=== PATIENT | male | born 1995 | race African-American/Black ===

== ENCOUNTER 2016-07-16 11:23 | Inpatient (IN) | payer OTHER, BC ==
--- NOTE | ~2016-07-16 | PN ---
Unit #: [id number] #: [id number] Patient: ADRIA ISRAEL [id number] [facility] [address] [place] [address] [id number] I MR#: [id number] NAME: ADRIA ISRAEL ROOM: [facility] Age: 21 Sex: M Admission Date: 07/16/2016 : 1995 Attending Physician: Brian Khan M.D. Admitting Physician: Brian Khan M.D. Primary Care Physician: Primary Care Physician Lashaun SCHAFFER PROGRESS NOTES DATE OF SERVICE: 07/18/2016 DISCUSSION Adria Israel is a 21-year-old male, seen on 07/18/2016. The patient interviewed, chart reviewed, and obtained information from nursing staff. The patient continues to be guarded, paranoid, attending to internal stimuli. The patient's behavior was disorganized. The patient was impulsive, but compliant with medication, needing seclusion and holding due to aggression and poor boundaries. The patient was very intrusive, needing redirection, attending to internal stimuli. Complete review of systems is unremarkable. MENTAL STATUS EXAMINATION General appearance, the patient dressed casually. Attention span and concentration, poor. Oriented in place. Mood and affect; labile, flat. Speech, monotone. Thought process, circumstantial. Thought content; guarded, paranoid, delusional, attending to internal stimuli. Recent and remote memory, poor. Insight and judgment, poor. DIAGNOSES 1. Psychosis, not otherwise specified. 2. Schizophrenia, chronic paranoid type. ASSESSMENT AND PLAN Advised to discontinue Zyprexa and start the patient on Abilify 10 mg b.i.d. for psychotic symptom with a plan to stabilize the patient on the Abilify and consider switching the patient from Abilify tablet to injection, Abilify Maintena, intramuscular long-acting medication as the patient has a history of multiple admissions and noncompliance. Continue with the inpatient programing. Dictated by... Kishore Parish/ludwig TD: 07/19/2016 12:13 JOB #: [id number] Unit #: [id number] #: [id number] Patient: ADRIA ISRAEL PROGRESS NOTES X Brian hKan MD PROGRESS NOTE
--- NOTE | ~2016-07-16 | HP ---
Unit #: [id number] #: [id number] Patient: ADRIA ISRAEL [id number] [place] [address] [id number] I MR#: [id number] NAME: ADRIA ISRAEL ROOM: [facility] Age: 21 Sex: M Admission Date: 07/16/2016 : 1995 Attending Physician: Brian Khan M.D. Admitting Physician: Brian Khan M.D. Primary Care Physician: Primary Care Physician No HISTORY AND PHYSICAL HISTORY OF PRESENT ILLNESS Adria is a 21 year old admitted to [address] [place] [address] with psychotic behavior. He is a poor historian so his history is taken from his chart. PAST MEDICAL HISTORY Nothing significant. PAST SURGICAL HISTORY Nothing reported. ALLERGIES No known drug allergies. SOCIAL HISTORY No history of cigarettes, alcohol or illicit drug use. FAMILY HISTORY Medically noncontributory. REVIEW OF SYSTEMS He does not answer any questions appropriately. There are no reports of nausea, vomiting or diarrhea. He has had no cough or increased temperature. CURRENT MEDICATIONS 1. Claritin 10 mg daily 2. Cogentin 1 mg q.h.s. 3. Haldol 5 mg q.h.s. 4. Depakote 500 mg b.i.d. 5. Zyprexa 10 mg b.i.d. 6. Milk of Magnesia p.r.n. 7. Maalox p.r.n. 8. Tylenol p.r.n. 9. Desyrel 100 mg q.h.s. p.r.n. 10. Nicotine patch 14 mg daily PHYSICAL EXAMINATION GENERAL: Alert, well-nourished, in no apparent distress. VITAL SIGNS: Blood pressure 132/86, heart rate 80, respirations 16, temperature 98.6. WEIGHT: 142 pounds. HEIGHT: 6'0". Unit #: [id number] #: [id number] Patient: ADRIA ISRAEL SKIN: Warm and dry without rash or lesion. HEENT: Normocephalic. TMs not viewed. Oral and nasal passages clear. Conjunctivae clear. Pupils equal, round and reactive to light and accommodation. Extraocular movements intact. NECK: Supple without lymphadenopathy or thyromegaly. HEART: Regular rate and rhythm without murmur. LUNGS: Clear. ABDOMEN: Soft, nontender. : Not done. EXTREMITIES: No evidence of cyanosis, clubbing or edema. Moves all extremities without focal deficit. NEUROLOGICAL: Unable to complete extended exam. He does move all extremities without focal deficit. 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 IMPRESSION Psychiatric admission RECOMMENDATIONS PSYCHIATRIC: Per psychiatrist. MEDICAL: I see no contraindications to participating in facility's activities. MEDICAL PROGNOSIS Good. MEDICAL CONDITION Stable. Dictated by... Amada Beauchamp P.A.-C. for Kishore Stubbs/artemio TD: 07/17/2016 01:04 JOB #: [id number] HISTORY AND PHYSICAL X Amada Beauchamp X HISTORY AND PHYSICAL
--- NOTE | ~2016-07-16 | PA ---
Unit #: [id number] #: [id number] Patient: ADRIA ISRAEL [id number] [place] [address] [id number] I MR#: [id number] NAME: ADRIA ISRAEL ROOM: 15 Age: 21 Sex: M Admission Date: 07/16/2016 : 1995 Date of Assessment: 07/17/2016 Attending Physician: Brian Khan M.D. Admitting Physician: Brian Khan M.D. Primary Care Physician: Primary Care Physician No PSYCHIATRIC ASSESSMENT INFORMANTS The patient reliability, poor; chart reliability, good. CHIEF COMPLAINT "I don't know." HISTORY OF PRESENT ILLNESS Mr. Adria Israel is a 21-year-old male, well known to us from his previous admission on 06/12/2016. The patient has a history of previous admission at [facility] and [facility] for psychosis. The patient presented with psychotic symptom. Father stated that the patient was discharged from this facility on 06/19/2016 and he went 2 times to [facility] session. The patient returned to work, but stopped going after a few days. The patient also stopped taking his discharge medication after a few days of discharge. Father reported that in the past one and half weeks exhibiting bizarre behavior, talking to his sister and stuffed animal toys. The patient not sleeping, poor appetite, neglecting his ADL. The patient also making suicidal and homicidal statement. Needing inpatient admission and placed on 72-hour hold at this time. PAST PSYCHIATRIC HISTORY Remarkable for history of previous admission 05/01/2012 inpatient at [facility], 06/12/2016 inpatient at [facility], 06/30/2016, [facility] for psychosis. FAMILY HISTORY AND SOCIAL HISTORY The patient lives alone, works at [employer]. Denied any history of any abuse, but reported fixated on mother not being nice to him. No known history of any abuse. MEDICAL HISTORY Unremarkable for any chronic medical illness. Musculoskeletal; muscle strength and tone, no atrophy or abnormal movement. Gait normal. MEDICATION HISTORY The patient is currently on Claritin 10 mg daily, Cogentin 1 mg at bedtime, haloperidol 5 mg at bedtime, Depakote 500 mg b.i.d., Zyprexa 10 mg b.i.d. ALLERGIES No known drug allergies. SUBSTANCE ABUSE HISTORY Unit #: [id number] #: [id number] Patient: ADRIA ISRAEL History of marijuana abuse, tobacco use at age 19, but the patient denied any use of drugs or alcohol recently, but according to the intake reports occasional use. REVIEW OF SYSTEMS HEENT: Eyes, clear. Ears, nose, mouth, and throat; clear. CARDIOVASCULAR: Unremarkable. RESPIRATORY: Unremarkable. GI: Unremarkable. : Unremarkable. SKIN: Unremarkable. LYMPH NODE: Unremarkable. NEUROLOGIC: Unremarkable. ENDOCRINE: Unremarkable. HEMATOLOGIC: Unremarkable. ALLERGIC/IMMUNOLOGIC: Unremarkable. MUSCULOSKELETAL: Muscle strength and tone, no atrophy or abnormal movement. Gait normal. MENTAL STATUS EXAMINATION CONSTITUTIONAL: Measurement of vital signs; temperature 98.3, pulse 74, respirations 12, blood pressure 127/74. Height 6 feet and weight 182 pounds. GENERAL APPEARANCE: The patient thin built, casually dressed. No facial deformity noted. MUSCULOSKELETAL: Please see above. PSYCHIATRIC EXAMINATION Description of speech; slow, long pauses, guarded. Description of thought process, circumstantial. Description of association; guarded, paranoid, attending to internal stimuli, preoccupied, mood lability, problem with anger, psychotic symptom, but denied any thoughts of harming self or others. Recent and remote memory, poor. Insight and judgment, poor. The patient was agitated, aggressive, needing injection Haldol 10, Cogentin 1, Ativan 1 mg IM. Complete mental status examination; orientation, unable to assess. Recent and remote memory, poor. Attention span and concentration, poor. Language, able to name object. Fund of knowledge, poor. Insight and judgment, impaired. ASSETS AND LIABILITIES Assets; the patient articulate, able to take care of his ADL. Liability; history of psychosis, substance abuse. ADMITTING DIAGNOSES Psychiatric: 1. Schizophrenia, chronic paranoid type, F20.0. 2. Rule out bipolar mood disorder. Secondary diagnosis: Deferred. Medical diagnosis: None. Stressors: Psychosocial stressors. PSYCHIATRIC PLAN AND TREATMENT GOAL 1. Advised to admit the patient on the inpatient unit. Provide safe, supportive, and structured environment. Unit #: [id number] #: [id number] Patient: ADRIA ISRAEL 2. Ordered labs; CBC, CMP, UA, and UDS. 3. Precaution for aggression, psychosis, self-harm. 4. Advised to continue with current medication with a plan to consider medication that can be used as an injectable long-acting such as Haldol long-acting once the patient is compliant with oral medication or Abilify. DISCHARGE PLAN Plan to stabilize the patient and consider followup in outpatient program. ESTIMATED LENGTH OF STAY 2 weeks. Dictated by... Kishore Parish/ludwig TD: 07/18/2016 05:12 JOB #: [id number] PSYCHIATRIC ASSESSMENT X Brian Khan MD PSYCHIATRIC ASSESSMENT
--- NOTE | ~2016-07-16 | PN ---
Unit #: [id number] #: [id number] Patient: ADRIA ISRAEL [id number] [facility] [address] [place] [address] [id number] I MR#: [id number] NAME: ADRIA ISRAEL ROOM: [facility] Age: 21 Sex: M Admission Date: 07/16/2016 : 1995 Attending Physician: Brian Khan M.D. Admitting Physician: Brian Khan M.D. Primary Care Physician: Primary Care Physician Lashaun WOLF NOTES DATE OF SERVICE: 07/20/2016 DISCUSSION Adria Israel is a 21-year-old male, seen on 07/20/2016. The patient interviewed, chart reviewed, and obtained information from nursing staff. The patient continues to be guarded, paranoid, mood lability, poor hygiene and grooming. The patient reports that he was able to sleep, but still withdrawn, isolative, guarded, paranoid, and delusional. REVIEW OF SYSTEMS Complete review of systems unremarkable. MENTAL STATUS EXAMINATION General appearance, the patient dressed casually. Attention span and concentration, poor. Orientation in place and person. Mood and affect, labile. Speech; rapid, repetitive, question. Thought process, circumstantial. Association; guarded, paranoid, mood lability, aggression. Recent and remote memory, poor. Insight and judgment, poor. DIAGNOSES Psychosis, not otherwise specified; mood disorder, not otherwise specified; and rule out schizophrenia, chronic paranoid type. ASSESSMENT AND PLAN Advised to continue with current medication and therapeutic protocol. If needed, consider further adjustment and consider long-acting injectable. Dictated by... Kishore Parish/ludwig TD: 07/20/2016 19:52 JOB #: [id number] Unit #: [id number] #: [id number] Patient: ADRIA ISRAEL LUCIANO NOTES X Brian Khan MD NOTE
--- NOTE | ~2016-07-16 | PN ---
Unit #: [id number] #: [id number] Patient: ADRIA ISRAEL [id number] [facility] [address] [place] [address] [id number] MR#: [id number] NAME: ADRIA ISRAEL ROOM: 15 Age: 21 Sex: M Admission Date: 07/16/2016 : 1995 Attending Physician: Brian Khan M.D. Admitting Physician: Brian Khan M.D. Primary Care Physician: Primary Care Physician Lashaun WOLF NOTES DATE OF SERVICE: 07/17/2016 DISCUSSION Adria Israel is a 21-year-old male, seen on 07/17/2016. The patient was guarded, paranoid, uncooperative during interview, isolative. The patient needed seclusion holding, aggressive, needing upper torso hold. The patient needed injectables; Haldol 10, Cogentin 1, and Ativan 1 mg IM. Complete review of systems unremarkable. MENTAL STATUS EXAMINATION General appearance, the patient dressed casually. Attention span and concentration, poor. Orientation in place. Mood and affect, labile. Speech; slow, thought blocking. Thought content; denied any thoughts of harming self or others, but guarded, paranoid, delusional, attending to internal stimuli. Recent and remote memory, poor. Insight and judgment, poor. DIAGNOSES 1. Psychosis, not otherwise specified. 2. Rule out schizophrenia. ASSESSMENT AND PLAN Advised to continue with current medication and therapeutic protocol. If needed, consider further adjustment of medication. Dictated by... Kishore Parish/ludwig TD: 07/19/2016 00:31 JOB #: [id number] Unit #: [id number] #: [id number] Patient: ADRIA ISRAEL DERICKCARA PROGRESS NOTES X Brian Khan MD PROGRESS NOTE
--- NOTE | ~2016-07-16 | DS ---
Unit #: [id number] #: [id number] Patient: ADRIA ISRAEL [id number] [place] [address] [id number] I MR#: [id number] NAME: ADRIA ISRAEL ROOM: 15 Age: 21 Sex: M Admission Date: 07/16/2016 : 1995 Discharge Date: 07/23/2016 Attending Physician: Brian Khan M.D. Primary Care Physician: Primary Care Physician No DISCHARGE SUMMARY REASON FOR ADMISSION Psychosis. DIAGNOSTIC STUDIES LABORATORY RESULTS: Remarkable for a glucose of 67 and AST 40. Urine drug screen is negative. HOSPITAL COURSE The patient was admitted to inpatient unit on 07/16/2016 and discharged on 07/23/2016. The patient was treated on the inpatient unit with group therapy, individual therapy, and medication management. The patient received maximum benefit from treatment and subsequently, the patient was discharged with a plan to follow up in outpatient program. The patient denied any psychotic symptom, but somewhat guarded. DISCHARGE MEDICATIONS Haldol 5 mg at bedtime for psychosis, Cogentin 1 mg at bedtime for EPS symptom, Depakote 500 mg b.i.d. for mood stabilization, and Abilify 10 mg b.i.d. for psychosis. The patient was discharged on 2 antipsychotic agents. The patient was tried on a trial of Haldol, Risperdal, and Abilify in the past and currently on 2 medications. Plan is to taper off Haldol after the patient is stable for 6 months. The patient is not a candidate for clozapine as the patient does not want any repeated blood tests. DISCHARGE DIAGNOSES Psychiatric: 1. Schizophrenia, chronic paranoid type. 2. Rule out bipolar mood disorder. Secondary diagnosis: Deferred. Medical diagnosis: None. Stressors: Psychosocial stressors. DISCHARGE INSTRUCTIONS The patient is to follow up in outpatient program as per long term care social worker. CONDITION ON DISCHARGE The patient was pleasant and cooperative. Denied any psychotic symptom or any suicidal ideation. PROGNOSIS Unit #: [id number] #: [id number] Patient: ADRIA ISRAEL Guarded. DIET AND ACTIVITY As tolerated. Dictated by... Kishore Parish/ludwig TD: 07/23/2016 20:30 JOB #: [id number] DISCHARGE SUMMARY X Brian Khan MD DISCHARGE SUMMARY
--- NOTE | ~2016-07-16 | PN ---
Unit #: [id number] #: [id number] Patient: ADRIA ISRAEL [id number] [facility] [address] [place] [address] [id number] I MR#: [id number] NAME: ADRIA ISRAEL ROOM: 15 Age: 21 Sex: M Admission Date: 07/16/2016 : 1995 Attending Physician: Brian Khan M.D. Admitting Physician: Brian Khan M.D. Primary Care Physician: Primary Care Physician Lashaun WOLF NOTES DATE OF SERVICE: 07/19/2016 DISCUSSION Adria Israel is a 21-year-old male, seen on 07/19/2016. The patient interviewed, chart reviewed, and obtained information from nursing staff. The patient's mood was labile, guarded, and paranoid, needing multiple redirections. The patient had poor boundaries. The patient needed p.r.n. medication Haldol IM as the patient continues to be psychotic and paranoid. REVIEW OF SYSTEMS Complete review of systems unremarkable. MENTAL STATUS EXAMINATION General appearance, the patient dressed casually. Attention span and concentration, poor. Orientation in place. Mood and affect, labile. Speech, rapid. Thought process, circumstantial. The patient denied any thoughts of harming self or others, but guarded, paranoid, delusional, and seems to be attending to internal stimuli. Recent and remote memory, poor. Insight and judgment, poor. DIAGNOSES 1. Bipolar mood disorder, not otherwise specified. 2. Psychosis, not otherwise specified. 3. Rule out schizoaffective disorder, bipolar type. 4. Rule out schizophrenia. ASSESSMENT AND PLAN Advised to consider long-acting injection. Continue with the inpatient programing to keep the patient safe. Dictated by... Kishore Parish/placidol TD: 07/20/2016 20:07 JOB #: [id number] Unit #: [id number] #: [id number] Patient: ADRIA ISRAEL DERICKCARA PROGRESS NOTES X Brian Khan MD X PROGRESS NOTE
--- NOTE | ~2016-07-16 | PN ---
Unit #: [id number] #: [id number] Patient: ADRIA ISREAL [id number] [facility] [address] [place] [address] [id number] I MR#: [id number] NAME: ADRIA ISRAEL ROOM: 15 Age: 21 Sex: M Admission Date: 07/16/2016 : 1995 Attending Physician: Brian Khan M.D. Admitting Physician: Brian Khan M.D. Primary Care Physician: Primary Care Physician Lashaun WOLF NOTES DATE OF SERVICE: 07/21/2016 DISCUSSION Adria Israel is a 21-year-old male, seen on 07/21/2016. The patient interviewed, chart reviewed, and obtained information from nursing staff. The patient was compliant and cooperative, but is having poor boundaries, guarded, paranoid, mood lability. REVIEW OF SYSTEMS Complete review of systems unremarkable. MENTAL STATUS EXAMINATION General appearance, the patient is dressed casually. Attention span and concentration, fair. Oriented in place and person. Mood and affect, labile, flat. Speech, monotone. Thought process, concrete. The patient denied any thoughts of harming self or others, but guarded, paranoid, delusional. Recent and remote memory, poor. Insight and judgment, poor. DIAGNOSIS Bipolar mood disorder, not otherwise specified. ASSESSMENT AND PLAN Advised to continue with current medication and therapeutic protocol. We will monitor response to medication and make further adjustment of medication. Dictated by... Kishore Parish/ludwig TD: 07/23/2016 02:10 JOB #: [id number] Unit #: [id number] #: [id number] Patient: ADRIA ISRAEL DERICKCARA PROGRESS NOTES X Brian Khan MD PROGRESS NOTE
--- NOTE | ~2016-07-16 | PN ---
Unit #: [id number] #: [id number] Patient: ADRIA ISRAEL [id number] [facility] [address] [place] [address] [id number] I MR#: [id number] NAME: ADRIA ISRAEL ROOM: 15 Age: 21 Sex: M Admission Date: 07/16/2016 : 1995 Attending Physician: Brian Khan M.D. Admitting Physician: Brian Khan M.D. Primary Care Physician: Primary Care Physician Lashaun WOLF NOTES DATE 07/22/2016 DISCUSSION Mr. Adria Israel is a 21-year-old male, seen on 07/22/2016. The patient interviewed, chart reviewed, and obtained information from the nursing staff. The patient continues to be very needy, poor boundaries, but no aggressive behavior. The patient was redirected easily, denied any auditory or visual hallucinations, somewhat guarded and paranoid. REVIEW OF SYSTEMS Complete review of systems unremarkable. MENTAL STATUS EXAMINATION General appearance: Patient casually dressed. Attention span and concentration, poor. Oriented to place and person. Mood and affect, labile. Speech, rapid. Thought process, circumstantial. Association, the patient denied any thoughts of harming self or others, guarded and paranoid. Recent and remote memory, poor. Insight and judgment, poor. DIAGNOSES 1. Bipolar mood disorder, NOS. 2. Rule out schizoaffective disorder. ASSESSMENT/PLAN Advised to continue with the current medication and therapeutic protocol and will monitor response to medication, and make further adjustment of medication. Dictated by... Kishore Parish/tg TD: 07/23/2016 08:41 JOB #: [id number] Unit #: [id number] #: [id number] Patient: ADRIA ISRAEL PROGRESS NOTES X Brian Khan MD PROGRESS NOTE
[2016-07-23 09:33] LABS: URINE APPEARANCE CLEAR; URINE BILIRUBIN NEG (NEG); URINE BLOOD NEG (NEG); URINE COLOR YELLOW; URINE GLUCOSE NEG (NEG); URINE KETONE TRACE (NEG); URINE LEUKOCYTE ESTERASE NEG (NEG); URINE NITRATE NEG (NEG); URINE PH 6.5 (5-8); URINE PROTEIN NEG (NEG); URINE SPECIFIC GRAVITY 1.016 (1.003-1.035); URINE UROBILINOGEN 0.2 MG/DL (NEG)
[2016-07-23 10:14] LABS: AMPHETAMINE NEG (NEG); BARBITURATES NEG (NEG); BENZODIAZEPINES NEG (NEG); COCAINE NEG (NEG); MARIJUANA NEG (NEG); OPIATES NEG (NEG); TRICYCLIC ANTIDEPRESSANTS NEG (NEG); U METHADONE NEG (NEG)
== END 2016-07-23 12:17 | disposition home or self-care (01) | DRG 885 ==
LOC: P1S 11:23
PROVIDERS: Psychiatry & Neurology Psychiatry
DX: F20.0 Paranoid schizophrenia (principal); F29 Unspecified psychosis not due to a substance or known physiological condition; F31.9 Bipolar disorder, unspecified
CPT/HCPCS: 80307; 81003; J0515; J1200; J1630; J2060

== ENCOUNTER 2016-07-27 10:48 | Inpatient (IN) | payer OTHER, BC ==
--- NOTE | ~2016-07-27 | PN ---
Unit #: [id number] #: [id number] Patient: ADRIA ISRAEL [id number] [facility] [address] [place] [address] [id number] I MR#: [id number] NAME: ADRIA ISRAEL ROOM: 15 Age: 21 Sex: M Admission Date: 07/27/2016 : 1995 Attending Physician: Brian Khan M.D. Admitting Physician: Brian Khan M.D. Primary Care Physician: Generic Doctor Not In System [facility] PROGRESS NOTES DATE 07/28/2016 DISCUSSION Adria Israel is a 21-year-old male seen on 07/28/2016. The patient interviewed, chart reviewed. Obtained information from nursing staff. The patient's mood was labile, guarded, paranoid. The patient denied any thoughts of harming self or others but behavior was disruptive, instigating, poor boundaries. The patient not sleeping, thoughts are disorganized, guarded, paranoid. Complete review of systems unremarkable. MENTAL STATUS EXAMINATION General appearance, the patient dressed casually. Attention span and concentration poor. Oriented to place. Mood and affect labile. Speech rapid. Thought process circumstantial, guarded, paranoid, delusional, mood lability. Recent and remote memory poor. Insight and judgement poor. DIAGNOSES Schizophrenia chronic paranoid type ASSESSMENT/PLAN Advise to continue with current medication and if needed consider further adjustment of medication. Dictated by... Kishore Parish/artemio TD: 07/30/2016 02:46 JOB #: [id number] [facility] PROGRESS NOTES X Brian Khan MD PROGRESS NOTE
--- NOTE | ~2016-07-27 | DS ---
Unit #: [id number] #: [id number] Patient: ADRIA ISRAEL [id number] [place] [address] [id number] I MR#: [id number] NAME: ADRIA ISRAEL ROOM: [facility] Age: 21 Sex: M Admission Date: 07/27/2016 : 1995 Discharge Date: 07/30/2016 Attending Physician: Brian Khan M.D. Primary Care Physician: Generic Doctor Not In System DISCHARGE SUMMARY REASON FOR ADMISSION Psychosis. DIAGNOSTIC STUDIES LABORATORY RESULTS: Unremarkable. HOSPITAL COURSE The patient was admitted to inpatient unit on 07/27/2016 and discharged on 07/30/2016. The patient was treated on the inpatient unit with group therapy, individual therapy, medication management. The patient needed multiple redirection and also needed p.r.n. medication. The patient was continued on his medication and showed improvement. Subsequently, the patient was discharged with a plan to follow up in outpatient program. DISCHARGE MEDICATIONS Trazodone 150 mg at bedtime p.r.n. for sleep, Cogentin 1 mg at bedtime for EPS symptom, Haldol 5 mg at bedtime for psychosis, Abilify 10 mg b.i.d. for psychosis, Depakote 500 mg b.i.d. for mood stabilization, Vistaril 25 mg t.i.d. for anxiety. The patient needed 2 antipsychotic as the patient did not do well on one. The patient was tried on Haldol, Abilify, Risperdal. Plan to taper off Haldol over the next 6 months if the patient is stable. The patient is not a candidate for clozapine. DISCHARGE DIAGNOSES Psychiatric: Schizophrenia, chronic paranoid type. Secondary diagnosis: Deferred. Medical diagnosis: None. Stressors: Psychosocial stressors. DISCHARGE INSTRUCTIONS The patient to follow up in outpatient clinic as per social contact worker. CONDITION ON DISCHARGE The patient was pleasant and cooperative. Denied any psychotic symptom or any suicidal ideation. PROGNOSIS Guarded. DIET AND ACTIVITY Unit #: [id number] #: [id number] Patient: ADRIA ISRAEL As tolerated. Dictated by... Kishore Parish/ludwig TD: 07/31/2016 06:12 JOB #: [id number] DISCHARGE SUMMARY Page 1 of 1 X Brian Khan MD DISCHARGE SUMMARY
--- NOTE | ~2016-07-27 | PN ---
Unit #: [id number] #: [id number] Patient: ADRIA ISRAEL [id number] [facility] [address] [place] [address] [id number] MR#: [id number] NAME: ADRIA ISRAEL ROOM: 15 Age: 21 Sex: M Admission Date: 07/27/2016 : 1995 Attending Physician: Brian Khan M.D. Admitting Physician: Brian Khan M.D. Primary Care Physician: Generic Doctor Not In System [facility] PROGRESS NOTES DATE OF SERVICE: 07/29/2016 DISCUSSION Adria Israel is a 21-year-old male, currently on Vistaril, trazodone, Haldol, Cogentin, Abilify, and Depakote. The patient continues to be paranoid, poor boundaries, mood lability, needing seclusion and holding yesterday and needing a p.r.n. medication, Haldol. Thought content, paranoid. Pressured speech, mood lability, poor boundary, disruptive, instigating, grabbing nurses during the pass, refusing to back up. Complete review of systems unremarkable. MENTAL STATUS EXAMINATION General appearance, the patient dressed casually. Attention span and concentration, poor. Oriented in place and person. Mood and affect were labile. Speech, rapid. Thought process, circumstantial. The patient denied any thoughts of harming self or others, but guarded, paranoid, delusional. Recent and remote memory, poor. Insight and judgment, poor. DIAGNOSIS Schizophrenia, chronic paranoid type. ASSESSMENT AND PLAN Advised to continue with current medication and therapeutic protocol. If needed, consider further adjustment of medication and consider injectable, haloperidol. Dictated by... Kishore aPrishC/modl TD: 07/29/2016 14:11 JOB #: [id number] Unit #: [id number] #: [id number] Patient: ADRIA ISRAEL [facility] PROGRESS NOTES X Brian Khan MD PROGRESS NOTE
--- NOTE | ~2016-07-27 | HP ---
Unit #: [id number] #: [id number] Patient: ADRIA ISRAEL [id number] [facility] [address] [place] [address] [id number] MR#: [id number] NAME: ADRIA ISRAEL ROOM: 15 Age: 21 Sex: M Admission Date: 07/27/2016 : 1995 Attending Physician: Brian Khan M.D. Admitting Physician: Brian Khan M.D. Primary Care Physician: Generic Doctor Not In System HISTORY AND PHYSICAL Adria is a 21 year old admitted to [address] [place] [address] because of his continued drug use. He is quite psychotic and he has had numerous admissions to this facility for the same. His history is taken from his chart. Patient was seen. H and P dated 07/16/16 was reviewed. This is current. No changes. Please see H and P dated 07/16/16. Dictated by... Amada Beauchamp P.A.-C. for Kishore Stubbs/nick TD: 07/28/2016 18:07 JOB #: [id number] HISTORY AND PHYSICAL X Amada Beauchamp HISTORY AND PHYSICAL
[2016-07-28 13:48] LABS: BASOPHIL% 0.5 % (0-2.5); EOSINOPHIL% 0.5 % (0.0-7.0); HEMATOCRIT 44.5 % (38.0-50.0); HEMOGLOBIN 14.4 gm/dL (13.0-16.0); LYMPHOCYTE# 1.4 X10e3 (1.0-3.5); LYMPHOCYTE% 20.6 % (17.0-45.0); MEAN CELL VOLUME 88.8 FL (83-96); MEAN CORPUSCULAR HEMOGLOBIN 28.8 PG (28-34); MEAN CORPUSCULAR HGB CONC 32.4 g/dL (30-36); MEAN PLATELET VOLUME 8.2 FL (6.5-11.5); MONOCYTE# 0.5 X10e3 (0-1.0); MONOCYTE% 6.9 % (3.0-12.0); NEUTROPHIL# 4.8 X10e3 (1.5-7.1); NEUTROPHIL% 71.5 % (40-75); PLATELET COUNT 273 X10e3 (140-420); RED BLOOD COUNT 5.01 X10e (3.90-5.60); RED CELL DISTRIBUTION WIDTH 14.1 % (11.0-15.5); WHITE BLOOD COUNT 6.8 X10e3 (4.0-10.5)
[2016-07-28 13:54] LABS: DIFF IND NO
[2016-07-28 14:06] LABS: THYROID STIMULATING HORMONE 1.02 uIU/ml (0.34-5.60)
[2016-07-28 14:12] LABS: ALBUMIN SERUM 4.5 g/dL (3.5-5.0); ALKALINE PHOSPHATASE 58 U/L (32-92); ALT (SGPT) 19 U/L (10-40); AST (SGOT) 34 U/L (10-42); BLOOD UREA NITROGEN 9 mg/dL (9-23); BUN/CREATININE RATIO 8.18; CALCIUM SERUM 9.6 mg/dL (8.4-10.2); CARBON DIOXIDE 30 mmol/L (22-31); CHLORIDE 100 mmol/L (100-111); CREATININE SERUM 1.1 mg/dL (0.6-1.4); DEPAKENE (VALPROIC ACID) 41 ug/mL (50-125); GLOM FILT RATE Estimated ABOVE60 mL/min (>60); GLUCOSE FASTING 124 mg/dL (70-110); POTASSIUM 3.7 mmol/L (3.5-5.1); PROTEIN TOTAL SERUM 7.9 g/dL (6.0-8.3); SODIUM 137 mmol/L (135-145)
[2016-07-28 14:13] LABS: FREE THYROXIN (T4) 1.07 ng/dL (0.58-1.64)
[2016-07-28 14:14] LABS: BILIRUBIN,TOTAL <0.1 mg/dL (0.2-2.0)
== END 2016-07-30 11:30 | disposition home or self-care (01) | DRG 885 ==
LOC: POF 10:48 → P1S 13:03 → POF 07-30 11:28
PROVIDERS: Psychiatry & Neurology Psychiatry
DX: F20.0 Paranoid schizophrenia (principal); I10 Essential (primary) hypertension
CPT/HCPCS: 80053; 80164; 84439; 84443; 85025; J0515; J1630; J2060